=== PATIENT | male | born 1985 | race Caucasian/White ===

== ENCOUNTER 2020-02-08 21:07 | Observation (INO) ==
[2020-02-08 21:40] LABS: Bilirubin,Urine Negative (Negative); Blood,Urine Negative (Negative); Clarity,Urine Clear (Clear); Color,Urine Yellow (Yellow); Glucose,Urine (UA) Normal (Normal); Ketones,Urine Trace mg/dL (Negative); Leukocyte Esterase,Urine Negative (Negative); Nitrite,Urine Negative (Negative); PH,Urine 6.5 pH Units (5.0-8.0); Protein,Urine Negative (Neg-Trace); Specific Gravity,Urine 1.026 (1.010-1.025); Urobilinogen,Urine Normal (Normal)
[2020-02-08 21:48] LABS: Amphetamine Screen,Urine Negative ng/mL (Cutoff=1000); Barbiturate Screen,Urine Negative ng/mL (Cutoff=200); Benzodiazepines Screen,Urine Negative ng/mL (Cutoff=200); Cannabinoid Screen,Urine Negative ng/mL (Cutoff = 50); Cocaine Screen,Urine Negative ng/mL (Cutoff= 300); Opiate Screen,Urine Negative ng/mL (Cutoff=300); Phencyclidine Screen,Urine Negative ng/mL (Cutoff=25)
[2020-02-08 21:56] LABS: Basophils % 0.3 %; Eosinophils # 0.2 K/mcL (0.0-0.6); Eosinophils % 1.5 %; Hemoglobin 16.6 g/dL (12.9-16.9); Immature Granulocytes % 0.3 % (0-4); Lymphocytes % 34.4 %; Mean Corpuscular HGB Conc 34.6 g/dL (31.6-35.5); Mean Corpuscular Hemoglobin 30.1 pg (28.0-33.3); Mean Corpuscular Volume 87.1 fL (83.0-100.0); Mean Platelet Volume 9.6 fL (9.4-12.4); Monocytes # 0.8 K/mcL (0.0-1.3); Monocytes % 6.6 %; Neutrophils # 6.6 K/mcL (1.6-8.9); Platelet Count 251 K/mcL (140-400); Red Blood Count 5.51 M/mcL (4.19-5.50); Red Cell Distribution Width 11.5 % (11.5-14.5); Segmented Neutrophils % 56.9 %; White Blood Count 11.7 K/mcL (4.3-11.1)
[2020-02-08 22:14] LABS: Acetaminophen < 10 mcg/mL (10-20); BUN/Creatinine Ratio 16 (6-26); Blood Urea Nitrogen 16 mg/dL (6-20); Calcium 9.6 mg/dL (8.6-10.3); Carbon Dioxide 24 mEq/L (23-29); Chloride 103 mEq/L (98-107); Ethanol < 10 mg/dL (Less than 10); Glucose 99 mg/dL (70-105); Osmolality,Calculated 287 (280-300); Potassium 3.5 mEq/L (3.5-5.1); Salicylate < 2.5 mg/dL (15.0-30.0); Sodium 138 mEq/L (136-145); eGFR For African Americans > 60 (> 60); eGFR For Non-African Americans > 60 (> 60)
[2020-02-08] MEDS ORDERED: hydrOXYzine pamoate 25 MG CAPSULE PO PRN (23:45)
[2020-02-08] MEDS ORDERED: Ziprasidone 20 MG in Water for inj. (sterile) 1 ML IM ONE (23:56)
[2020-02-09] MEDS ORDERED: hydrOXYzine pamoate 25 MG CAPSULE PO PRN (00:41)
[2020-02-09] MEDS ORDERED: Ibuprofen 400 MG TABLET PO PRN (00:41)
[2020-02-09] MEDS ORDERED: Haloperidol Lactate 5 MG/ML VIAL IM PRN (00:41)
[2020-02-09] MEDS ORDERED: *HR* LORazepam 2 MG/ML VIAL IM PRN (00:41)
[2020-02-09] MEDS ORDERED: haloperidoL 5 MG TABLET PO PRN (00:41)
[2020-02-09] MEDS ORDERED: Acetaminophen 325 MG TABLET PO PRN (00:41)
[2020-02-09] MEDS ORDERED: *HR* LORazepam 1 MG TABLET PO PRN (00:41)
[2020-02-10 09:31] VITALS: BP 134/99
== END 2020-02-10 12:00 | disposition home or self-care (01) ==
LOC: EMEROOARM 21:07 → 1ANU 21:07
PROVIDERS: ADMIT Psychiatry & Neurology Psychiatry; ATTEND Psychiatry & Neurology Psychiatry